=== PATIENT | male | born 1995 | race Caucasian/White ===

== ENCOUNTER 2021-09-26 18:06 | Emergency (ER) | payer MEDICAID, OTHER ==
[~2021-09-26] VITALS: Ht 177.8 cm; Wt 84.0 kg
[2021-09-26 18:18] VITALS: BP 147/104
[2021-09-26] MEDS ORDERED: P50 MT (21:45)
[2021-09-26] MEDS ORDERED: FAMO20TA8 MT (21:46)
[2021-09-26] MEDS ORDERED: DIPH103G TP (21:47)
== END 2021-09-26 23:01 | disposition left against medical advice (07) ==
LOC: ER 18:25
DX: R21 Rash and other nonspecific skin eruption (principal); Z98.890 Other specified postprocedural states
CPT/HCPCS: 99281